=== PATIENT | male | born 1970 | race Caucasian/White ===

== ENCOUNTER → 2019-09-29 | Outpatient (CLI) | payer OTHER ==
[2019-09-29 15:06] VITALS: BP 122/81; PULSE 65; RESP 16; TEMP 98.7; BMI 31.1
--- NOTE | 2019-09-29 16:55 | P.BASOAP ---
Subjective Progress Note Date: 09/29/19 Principal diagnosis: GERD 48-year-old male known to our service from previous sleeve gastrectomy. Has maintained his weight. Currently weight is at 199. He had been off of his antiacids for a few years but restarted them about 1 year ago. He was having some increased heartburn at that time. Over the last few months has had some complaints of dysphagia and increased GERD symptoms. Does have some occasional episodes of mucousy emesis after meals. Mild pain if he eats too much. Denies hematemesis, no melena, no fevers Objective - Vital Signs Vital signs: Vital Signs Temp 98.7 F 09/29/19 15:02 Pulse 65 09/29/19 15:02 Resp 16 09/29/19 15:02 BP 122/81 09/29/19 15:02 Pulse Ox Intake & Output 09/28/19 09/29/19 09/29/19 18:59 06:59 18:59 Weight 90.265 kg - Exam Abdomen: Soft, nontender, nondistended Assessment/Plan (1) Morbid obesity Narrative/Plan: 48-year-old male with worsening reflux and some dysphagia. Intermittent vomiting. We'll plan upper endoscopy with possible dilation. Continue antiacids for now. Plan: Date: 09/29/19 Initial Weight: 131.542 kg Initial BMI: 45.4 Current Weight: 90.265 kg Current BMI: 31.1 Type of Surgery: Total Volume in Band: Previous Volume: Volume Removed: Volume Added: Band Size:
== END | disposition home or self-care (01) ==
LOC: BARWHC3 14:41
PROVIDERS: ATTEND Surgery
DX: Z48.815 Encounter for surgical aftercare following surgery on the digestive system (principal); E66.01 Morbid (severe) obesity due to excess calories; K21.9 Gastro-esophageal reflux disease without esophagitis; R11.10 Vomiting, unspecified; Z68.31 Body mass index [BMI] 31.0-31.9, adult; Z98.84 Bariatric surgery status; Z79.899 Other long term (current) drug therapy
CPT/HCPCS: 99201; 99211

== ENCOUNTER → 2019-10-19 | Day surgery (SDC) | payer OTHER ==
[2019-10-15 13:12] VITALS: BMI 30.5
[~2019-10-19] MED LIST: LACTATED RINGERS 1,000 ML IV SCH; LIDOCAINE 1% 20 ML VIAL (10MG/ML) FOR IV START INTRADERMA ONE; LIDOCAINE 1% INJ 10MG/ML (20 ML MDV) ONE; MIDAZOLAM 2 MG/2 ML VIAL ONE; PROPOFOL 10 MG/ML 20 ML VIAL IV ONE; fentaNYL (PF) 50 MCG/ML 2 ML AMP ONE
[2019-10-19 11:31] VITALS: RESP 16; TEMP 97.6
--- NOTE | 2019-10-19 12:00 | P.GSHP ---
History of Present Illness H&P Date: 10/19/19 Chief Complaint: GERD 49-year-old male here today with complaints of reflux. History of previous sleeve gastrectomy. Taking antacids daily. Mild dysphagia. Mucousy emesis at times. Past Medical History Past Medical History: GERD/Reflux, Hyperlipidemia, Hypertension Additional Past Medical History / Comment(s): heartburn & vomiting recently History of Any Multi-Drug Resistant Organisms: None Reported Past Surgical History: Bariatric Surgery, Cardiac Valve Replacement, Hernia Repair Additional Past Surgical History / Comment(s): aortic valve replacement x 2 sleeve gastrectomy 2010 Past Anesthesia/Blood Transfusion Reactions: No Reported Reaction Additional Past Anesthesia/Blood Transfusion Reaction / Comment(s): states very needle phobic Smoking Status: Never smoker Medications and Allergies Home Medications Medication Instructions Recorded Confirmed Type Aspirin 81 mg PO DAILY 09/29/19 10/15/19 History Krill Oil 500 mg PO DAILY 09/29/19 10/15/19 History Metoprolol Tartrate [Lopressor] 50 mg PO HS 09/29/19 10/15/19 History Multivitamins, Thera [Multivitamin 1 tab PO DAILY 09/29/19 10/15/19 History (formulary)] Omeprazole [PriLOSEC] 20 mg PO HS 09/29/19 10/15/19 History Simvastatin [Zocor] 10 mg PO HS 09/29/19 10/15/19 History Allergies Allergy/AdvReac Type Severity Reaction Status Date / Time No Known Allergies Allergy Verified 10/19/19 11:28 Surgical - Exam Vital Signs Temp Pulse Resp BP Pulse Ox 97.6 F 74 16 138/89 98 10/19/19 11:30 10/19/19 11:30 10/19/19 11:30 10/19/19 11:30 10/19/19 11:30 Physical exam: General: Well-developed, well-nourished HEENT: Normocephalic, sclerae nonicteric Abdomen: Nontender, nondistended Extremities: No edema Neuro: Alert and oriented Assessment and Plan (1) GERD (gastroesophageal reflux disease) Narrative/Plan: Will proceed with upper endoscopy at this time. Current Visit: Yes Status: Acute Code(s): K21.9 - GASTRO-ESOPHAGEAL REFLUX DISEASE WITHOUT ESOPHAGITIS SNOMED Code(s): 115846231
[2019-10-19 12:11] LABS: HCT 46.2 % (39.0-53.0); HGB 15.4 gm/dL (13.0-17.5); MCH 29.5 pg (25.0-35.0); MCHC 33.4 g/dL (31.0-37.0); MCV 88.5 fL (80.0-100.0); Mean Platelet Volume 6.9; Platelet Count 152 k/uL (150-450); RBC 5.23 m/uL (4.30-5.90); RDW 12.8 % (11.5-15.5); WBC 4.7 k/uL (3.8-10.6)
--- NOTE | 2019-10-19 12:18 | P.PCN ---
Date of Procedure: 10/19/19 Procedure(s) Performed: Preoperative Dx: GERD, vomiting Postoperative Dx: Retained food and liquid in the esophagus and sleeve - possible gastroparesis, mild gastritis Procedure: EGD with Bx Anesthesia: Sedation Endoscopist: Dr. De La Torre Specimens: Antrum Endoscopic Procedure: The patient was on the endoscopy table in the left decubitus position. The Olympus gastroscope was inserted into the oropharynx and passed under direct visualization to the region of the third portion of the duodenum. From that point the scope was slowly withdrawn inspecting all surfaces carefully. There were no neoplastic inflammatory or polypoid lesions throughout the duodenum. The pylorus was widely patent. The stomach was carefully inspected. There was bilious stained liquid and particulate matter present throughout the esophagus and stomach. There was no stricture of the pylorus. There was no visible narrowing of the patient's sleeve gastrectomy. There was no evidence of hiatal hernia although retroflexion could not be performed given the previous surgery. The patient's esophagus itself appeared normal with no mucosal abnormalities present. The patient was then taken to the recovery room in stable condition per anesthesia guidelines. Recommendations: Await biopsy results. Begin prokinetic agents. If symptoms persist we'll consider gastric emptying study.
[2019-10-19 12:34] VITALS: BP 121/81; PULSE 59
[2019-10-19 18:32] LABS: Iron 89 ug/dL (65-175)
[2019-10-19 19:00] LABS: Folate, Serum >24.0 ng/mL
[2019-10-20 13:10] LABS: Zinc, Serum 57 ug/dL (60-130)
[2019-10-22 09:28] LABS: Vit B1(Thiamine) 48 ug/L (38-122)
== END ==
LOC: ORWHC2ENDO 11:09
PROVIDERS: ATTEND Surgery
DX: K29.50 Unspecified chronic gastritis without bleeding (principal); K21.9 Gastro-esophageal reflux disease without esophagitis; I10 Essential (primary) hypertension; E78.5 Hyperlipidemia, unspecified; Z79.82 Long term (current) use of aspirin; Z79.899 Other long term (current) drug therapy; Z98.84 Bariatric surgery status; Z95.2 Presence of prosthetic heart valve
CPT/HCPCS: 88305; 84425; 82607; 82746; 83540; 84630; 85027; 82306; 43239; J2250; J2001; J3010; J2704; 84590